=== PATIENT | male | born 2000 | race Caucasian/White ===

== ENCOUNTER 2018-12-10 17:57 | Emergency (ER) | payer MEDICAID ==
[~2018-12-10] VITALS: Ht 165.1 cm; Wt 65.0 kg
[~2018-12-10 17:57] MED LIST: AMOX1TAB10 PO; HYDR-4011 PO; IBUP-1561 PO
[2018-12-10 18:01] VITALS: Ht 165.1 cm; Wt 65.0 kg
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
[2018-12-10] MEDS ORDERED: IBUPROFEN 200 MG TAB PO ONE (19:00)
[2018-12-10] MEDS ORDERED: HYDROCODONE/APAP (5/325) TAB PO ONE (19:00)
[2018-12-10 20:34] VITALS: BP 128/77; PULSE 84; RESP 16
== END 2018-12-10 20:35 | disposition home or self-care (01) ==
LOC: FTE 17:57
DX: S02.31XA Fracture of orbital floor, right side, initial encounter for closed fracture (principal); Y04.0XXA Assault by unarmed brawl or fight, initial encounter
CPT/HCPCS: 70480; Z7502; Z7610